=== PATIENT | female | born 1990 | race Caucasian/White ===

== ENCOUNTER 2016-07-17 09:13 | Emergency (ER) | payer OTHER ==
[2016-07-17 09:58] VITALS: BP 107/65
--- NOTE | 2016-07-17 10:49 | UC ---
Throat Pain/Nasal Jose HPI - HPI Summary HPI Summary: cough, sore throat started yesterday. No fever. Hx seizures, not on meds, has not had a seizure in a long time (years) - History of Current Complaint Chief Complaint: UCGeneralIllness Stated Complaint: SORE THROAT,COUGH Time Seen by Provider: 07/17/16 10:28 Hx Obtained From: Patient Hx Last Menstrual Period: 07/10/16 Onset/Duration: Gradual Onset, Lasting Days, Still Present Severity: Moderate Pain Intensity: 1 Pain Scale Used: 0-10 Numeric Cough: Nonproductive Associated Signs & Symptoms: Positive: Dysphagia, Hoarseness, Nasal Discharge. Negative: Fever, Rash - Epiglottits Risk Factors Epiglottis Risk Factors: Negative - Allergies/Home Medications Allergies/Adverse Reactions: Allergies Allergy/AdvReac Type Severity Reaction Status Date / Time No Known Allergies Allergy Verified 03/13/16 09:19 PMH/Surg Hx/FS Hx/Imm Hx Previously Healthy: Yes Neurological History Of: Reports: Seizures - untreated - Surgical History Surgical History: Yes Surgery Procedure, Year, and Place: BACK SX for vertebral fx 2006 - Family History Known Family History: Positive: Hypertension, Other - no FH seizures Negative: Cardiac Disease - Social History Occupation: Employed Full-time Lives: With Family Alcohol Use: None Substance Use Type: None Smoking Status (MU): Light Every Day Tobacco Smoker Type: Cigarettes Amount Used/How Often: 5 cigs per day Household Exposure Type: Cigarettes Review of Systems Constitutional: Negative Skin: Negative Eyes: Negative ENT: Sore Throat Respiratory: Negative Cardiovascular: Negative Gastrointestinal: Negative Genitourinary: Negative Motor: Negative Neurovascular: Negative Musculoskeletal: Negative Neurological: Negative Psychological: Negative All Other Systems Reviewed And Are Negative: Yes Physical Exam Triage Information Reviewed: Yes Appearance: Well-Nourished, Ill-Appearing, Pain Distress Vital Signs: Initial Vital Signs Temp 98.0 F 07/17/16 09:52 Pulse 73 07/17/16 09:52 Resp 14 07/17/16 09:52 BP 107/65 07/17/16 09:52 Pulse Ox 100 07/17/16 09:52 Vital Signs Reviewed: Yes Eyes: Positive: Conjunctiva Clear ENT: Positive: Pharyngeal erythema, TMs normal Neck: Positive: Supple, Nontender, No Lymphadenopathy Respiratory: Positive: Lungs clear, Normal breath sounds, No respiratory distress Cardiovascular: Positive: RRR, No Murmur, Pulses Normal, Brisk Capillary Refill Musculoskeletal: Positive: Strength Intact, ROM Intact Neurological: Positive: Alert, Muscle Tone Normal Psychological Exam: Normal Skin Exam: Normal Throat Pain/Nasal Course/Dx - Course Course Of Treatment: rapid A positive - Differential Dx/Diagnosis Differential Diagnosis/HQI/PQRI: Otitis Media, Pharyngitis, Sinusitis, URI Provider Diagnoses: strep pharyngitis Discharge - Discharge Plan Condition: Stable Disposition: HOME Prescriptions: Amoxicillin (*) 875 mg PO BID #20 tab Patient Education Materials: Strep Throat (ED) Forms: *Work Release Referrals: Moira Munson NP [Nurse Practitioner] -
== END 2016-07-17 11:18 | disposition home or self-care (01) ==
LOC: UCCORT 09:13
DX: J02.0 Streptococcal pharyngitis (principal); F17.210 Nicotine dependence, cigarettes, uncomplicated
CPT/HCPCS: 87651; 99212; G0463

== ENCOUNTER 2016-12-06 17:18 | Emergency (ER) | payer OTHER ==
[2016-12-06 18:11] VITALS: BP 115/75
--- NOTE | 2016-12-06 18:28 | UC ---
UC General HPI - HPI Summary HPI Summary: Patient is complaining of COBURN and stomach upset, states she through up mucus earlier today. had fever of 101 today - History of Current Complaint Chief Complaint: UCGeneralIllness Stated Complaint: UPSET STOMACH,HEADACHE Time Seen by Provider: 12/06/16 18:18 Hx Obtained From: Patient Onset/Duration: Sudden Onset, Lasting Days Timing: Constant Onset Severity: Moderate Current Severity: Moderate Associated Signs & Symptoms: Positive: Fever, Headache, Nausea - Allergy/Home Medications Allergies/Adverse Reactions: Allergies Allergy/AdvReac Type Severity Reaction Status Date / Time No Known Allergies Allergy Verified 12/06/16 18:11 Home Medications: Home Medications Qeikmfe-Illljptcwtzqj-Xthankma [Excedrin Extra Strength] 1 tab PO DAILY [History Confirmed 12/06/16] PMH/Surg Hx/FS Hx/Imm Hx Previously Healthy: Yes Other History Of: Negative For: HIV, Hepatitis B, Hepatitis C, Anticoagulant Therapy - Surgical History Surgical History: Yes Surgery Procedure, Year, and Place: BACK SX for vertebral fx 2006 - Family History Known Family History: Positive: Hypertension, Other - no FH seizures Negative: Cardiac Disease - Social History Alcohol Use: None Substance Use Type: None Smoking Status (MU): Light Every Day Tobacco Smoker Type: Cigarettes Amount Used/How Often: 5 cigs per day Household Exposure Type: Cigarettes Review of Systems Constitutional: Fever, Fatigue Skin: Negative Eyes: Negative ENT: Negative Respiratory: Negative Cardiovascular: Negative Gastrointestinal: Vomiting Genitourinary: Negative Motor: Negative Neurovascular: Negative Musculoskeletal: Negative Neurological: Negative Psychological: Negative All Other Systems Reviewed And Are Negative: Yes Physical Exam Triage Information Reviewed: Yes Appearance: Well-Nourished, Ill-Appearing, Pain Distress Vital Signs: Initial Vital Signs Temp 97.9 F 12/06/16 18:09 Pulse 94 12/06/16 18:09 Resp 22 12/06/16 18:09 BP 115/75 12/06/16 18:09 Pulse Ox 100 12/06/16 18:09 Vital Signs Reviewed: Yes Eye Exam: Normal Eyes: Positive: Conjunctiva Clear ENT: Positive: Pharyngeal erythema, TM bulging Dental Exam: Normal Neck exam: Normal Neck: Positive: Supple, Nontender, No Lymphadenopathy Respiratory Exam: Normal Respiratory: Positive: Chest non-tender, Lungs clear, Normal breath sounds Cardiovascular Exam: Normal Cardiovascular: Positive: RRR, No Murmur, Pulses Normal Abdominal Exam: Normal Abdomen Description: Positive: Nontender, No Organomegaly, Soft Bowel Sounds: Positive: Present Musculoskeletal Exam: Normal Musculoskeletal: Positive: Strength Intact, ROM Intact, No Edema Neurological Exam: Normal Neurological: Positive: Alert, Muscle Tone Normal Psychological Exam: Normal Skin Exam: Normal Course/Dx - Course Course Of Treatment: hx obtained, exam performed, meds reviewed, rapid strep obtained and is positive - Differential Dx - Multi-Symptom Provider Diagnoses: strep pharyngitis Discharge - Discharge Plan Condition: Stable Disposition: HOME Prescriptions: Amoxicillin (*) [Amoxicillin 875 MG (*)] 875 mg PO BID #20 tab Patient Education Materials: Pharyngitis (ED) Additional Instructions: 1. take the medication as prescribed. 2. Increase fluid intake and get plenty of rest.
== END 2016-12-06 18:48 | disposition home or self-care (01) ==
LOC: UCCORT 17:18
DX: J02.0 Streptococcal pharyngitis (principal); F17.210 Nicotine dependence, cigarettes, uncomplicated
CPT/HCPCS: 87651; 99212; G0463

== ENCOUNTER 2017-06-25 11:53 | Emergency (ER) | payer SELFPAY ==
[2017-06-25 13:51] VITALS: BP 104/81
[2017-06-25] MEDS ORDERED: Ibuprofen TAB* 600 MG PO ONE (14:00)
--- NOTE | 2017-06-25 14:04 | UC ---
Hand/Wrist HPI - HPI Summary HPI Summary: Yesterday while going down stairs fell backward, threw hand up to catch herself and it hit on the corner of the railing right on her 5th MCP joint. Today has pain, swelling, and inability to use the part. Works at [employer] and had to call in today for injury. - History Of Current Complaint Chief Complaint: UCUpperExtremity Stated Complaint: RIGHT HAND INJURY Time Seen by Provider: 06/25/17 13:54 Hx Obtained From: Patient Hx Last Menstrual Period: 06/04/17 ?: No Onset/Duration: Sudden Onset Severity Initially: Moderate Severity Currently: Moderate Character Of Pain: Dull, Aching, Stiffness Aggravating Factor(s): Movement Alleviating Factor(s): Rest, Ice, Elevation, OTC Meds Associated Signs And Symptoms: Positive: Swelling, Bruising Related History: Dominant Hand Right - Allergies/Home Medications Allergies/Adverse Reactions: Allergies Allergy/AdvReac Type Severity Reaction Status Date / Time No Known Allergies Allergy Verified 06/25/17 13:46 Home Medications: Home Medications NK [No Home Medications Reported] 06/25/17 [History Confirmed 06/25/17] PMH/Surg Hx/FS Hx/Imm Hx Previously Healthy: Yes Other History Of: Negative For: HIV, Hepatitis B, Hepatitis C, Anticoagulant Therapy - Surgical History Surgical History: Yes Surgery Procedure, Year, and Place: BACK SX for vertebral fx 2006 - Family History Known Family History: Positive: Hypertension, Other - no FH seizures Negative: Cardiac Disease - Social History Occupation: Employed Full-time Lives: With Family Alcohol Use: None Substance Use Type: None Smoking Status (MU): Former Smoker Type: Cigarettes Amount Used/How Often: 5 cigs per day When Did the Patient Quit Smoking/Using Tobacco: 3 months ago Household Exposure Type: Cigarettes Review of Systems Constitutional: Negative Skin: Negative Eyes: Negative ENT: Negative Respiratory: Negative Cardiovascular: Negative Gastrointestinal: Negative Genitourinary: Negative Motor: Negative Neurovascular: Negative Musculoskeletal: Arthralgia, Decreased ROM, Edema Neurological: Negative Psychological: Negative Is Patient Immunocompromised?: No All Other Systems Reviewed And Are Negative: Yes Physical Exam Triage Information Reviewed: Yes Appearance: Well-Appearing, No Pain Distress, Well-Nourished Vital Signs: Initial Vital Signs Temp 98.6 F 06/25/17 13:47 Pulse 68 06/25/17 13:47 Resp 18 06/25/17 13:47 BP 104/81 06/25/17 13:47 Vital Signs Reviewed: Yes Eye Exam: Normal Eyes: Positive: Conjunctiva Clear ENT Exam: Normal ENT: Positive: Normal ENT inspection, Hearing grossly normal, Pharynx normal, TMs normal Dental Exam: Normal Neck exam: Normal Neck: Positive: Supple, Nontender, No Lymphadenopathy Respiratory Exam: Normal Respiratory: Positive: Chest non-tender, Lungs clear, Normal breath sounds, No respiratory distress, No accessory muscle use Cardiovascular Exam: Normal Cardiovascular: Positive: RRR, No Murmur Musculoskeletal Exam: Other - bruising, pain, swelling, tenderness around R 5th MCP joint Musculoskeletal: Positive: Strength Limited @ - R flaker tender Neurological Exam: Normal Neurological: Positive: Alert Psychological Exam: Normal Skin Exam: Other - bruising R hand Diagnostics - Radiology No standard instances Xray Interpretation: No Acute Changes Radiology Interpretation Completed By: ED Physician, Radiologist Hand/Wrist Course/Dx - Differential Dx/Diagnosis Provider Diagnoses: R hand contusion Discharge - Discharge Plan Condition: Stable Disposition: HOME Patient Education Materials: Contusion in Adults (ED) Forms: *Work Release Referrals: No Primary Care Phys,NOPCP [Primary Care Provider] - Additional Instructions: You can use ibuprofen and ice as needed for pain. I expect the pain to mostly resolve within a week or so.
--- NOTE | 2017-06-25 14:22 | RAD ---
INDICATION: Pain and swelling overlying the fifth metacarpal after a fall COMPARISON: Similar radiograph dated October 13, 2013 TECHNIQUE: 4 views of the right hand were obtained. FINDINGS: The adequately corticated bones are in normal alignment. No significant focal osseous abnormality or fracture is seen. Joint spaces appear maintained. IMPRESSION: Normal right hand radiograph. If the patient's symptoms persist, follow-up imaging is recommended.
== END 2017-06-25 14:36 | disposition home or self-care (01) ==
LOC: UCCORT 11:53
DX: S60.221A Contusion of right hand, initial encounter (principal); Z87.891 Personal history of nicotine dependence; W10.9XXA Fall (on) (from) unspecified stairs and steps, initial encounter; W22.8XXA Striking against or struck by other objects, initial encounter; Y92.9 Unspecified place or not applicable
CPT/HCPCS: 99211; A9270-GY; G0463

== ENCOUNTER 2017-06-27 15:27 | Emergency (ER) | payer SELFPAY | END 2017-06-27 16:39 | disposition left against medical advice (07) | LOC: UCCORT 15:27 | DX: K08.89 Other specified disorders of teeth and supporting structures (principal); Z53.21 Procedure and treatment not carried out due to patient leaving prior to being seen by health care provider ==

== ENCOUNTER 2018-02-25 15:42 | Emergency (ER) | payer OTHER ==
[2018-02-25 16:53] VITALS: BP 100/67
[2018-02-25] MEDS ORDERED: Ondansetron ODT TAB* 4 MG PO ONE ×2 (17:40→17:54)
--- NOTE | 2018-02-25 17:45 | UC ---
Abdominal Pain Female HPI - HPI Summary HPI Summary: C/O nausea with emesis x 2 no diarrhea. C/O headache, occipital, constant throbbing. - History of Current Complaint Chief Complaint: UCGI Stated Complaint: VOMITING/HEADACHE Time Seen by Provider: 02/25/18 17:35 Hx Obtained From: Patient Hx Last Menstrual Period: 02/25/18 ?: No Onset/Duration: Gradual Onset - this morning with nausea/ vomiting and lower abdominal pain. Occipital headache, Worse Since - onset Timing: Constant Severity Initially: Mild Severity Currently: Moderate Pain Intensity: 7 Location: Discrete At: LLQ Radiates: No Character: Aching, Cramping Aggravating Factor(s): Nothing Alleviating Factor(s): Nothing Associated Signs and Symptoms: Positive: Vaginal Bleeding - with menses, Nausea , Vomiting. Negative: Fever, Urinary Symptoms, Diarrhea Allergies/Adverse Reactions: Allergies Allergy/AdvReac Type Severity Reaction Status Date / Time No Known Allergies Allergy Verified 02/25/18 16:53 Home Medications: Home Medications Acetaminophen [Acetaminophen Extra Strength] 500 mg PO ONCE PRN 02/25/18 [ History Confirmed 02/25/18] PMH/Surg Hx/FS Hx/Imm Hx Neurological History: Migraine Other History Of: Negative For: HIV, Hepatitis B, Hepatitis C, Anticoagulant Therapy - Surgical History Surgical History: Yes Surgery Procedure, Year, and Place: BACK SX for vertebral fx 2006 - Family History Known Family History: Positive: Hypertension, Other - no FH seizures Negative: Cardiac Disease, Diabetes - Social History Occupation: Employed Full-time Lives: Alone - with boyfriend Alcohol Use: Rare Substance Use Type: None Smoking Status (MU): Former Smoker Type: Cigarettes Amount Used/How Often: 5 cigs per day When Did the Patient Quit Smoking/Using Tobacco: 2017 Household Exposure Type: Cigarettes Review of Systems Gastrointestinal: Vomiting, Nausea Neurological: Headache Is Patient Immunocompromised?: No All Other Systems Reviewed And Are Negative: Yes Physical Exam Triage Information Reviewed: Yes Appearance: No Pain Distress, Ill-Appearing, Pain Distress Vital Signs: Initial Vital Signs Temp 98.8 F 02/25/18 16:46 Pulse 91 02/25/18 16:46 Resp 16 02/25/18 16:46 BP 100/67 02/25/18 16:46 Pulse Ox 98 02/25/18 16:46 Vital Signs Reviewed: Yes Eyes: Positive: Conjunctiva Clear ENT: Positive: Pharynx normal, Nasal congestion, TMs normal Neck exam: Normal Respiratory Exam: Normal Cardiovascular Exam: Normal Abdomen Description: Negative: Nontender - Mild epigastric and LLQ > RLQ tenderness, CVA Tenderness (R), CVA Tenderness (L), McBurney's Point Tenderness , Peritoneal Signs Bowel Sounds: Positive: Present Musculoskeletal Exam: Normal Neurological Exam: Normal Psychological Exam: Normal Skin Exam: Normal Abd Pain Female Course/Dx - Differential Dx/Diagnosis Differential Diagnosis: Appendicitis, Irritable Bowel Syndrome, Pancreatitis Provider Diagnoses: Migraine headache. Gastroentitis Discharge - Sign-Out/Discharge Documenting (check all that apply): Patient Departure All imaging exams completed and their final reports reviewed: No Studies - Discharge Plan Condition: Stable Disposition: HOME Prescriptions: Ondansetron ODT TAB* [Zofran 4 MG Odt TAB*] 4 mg PO Q6H PRN #10 tab.odt PRN Reason: Nausea/Vomiting Patient Education Materials: Migraine Headache (ED), Gastroenteritis (DC), Ondansetron (By mouth) Referrals: No Primary Care Phys,NOPCP [Primary Care Provider] - Additional Instructions: If you get worsening abdominal pain, go to the ER. - Billing Disposition and Condition Condition: STABLE Disposition: Home
== END 2018-02-25 18:05 | disposition home or self-care (01) ==
LOC: UCCORT 15:42
DX: G43.909 Migraine, unspecified, not intractable, without status migrainosus (principal); K52.9 Noninfective gastroenteritis and colitis, unspecified; Z87.891 Personal history of nicotine dependence
CPT/HCPCS: 99212; A9270-GY; G0463

== ENCOUNTER 2018-08-06 17:06 | Emergency (ER) | payer SELFPAY ==
[2018-08-06 18:04] VITALS: BP 115/64
--- NOTE | 2018-08-06 18:05 | UC ---
Lower Extremity/Ankle HPI - HPI Summary HPI Summary: 27 yo female presents with RIGHT foot pain. She tells me that a few days ago she had a seizure and injured her right foot. She went to the ER for this and tells me that her workup was negative and there was no sign of fracture in her foot. They told her she had a sprain and sent her home. She is here today requesting a note for work as she does not feel ready to return. Pain worse with weight bearing. Has been taking ibuprofen with little relief. Denies numbness, tingling. - History of Current Complaint Chief Complaint: UCLowerExtremity Stated Complaint: RIGHT FOOT COMPLAINT Time Seen by Provider: 08/06/18 18:04 Hx Obtained From: Patient Hx Last Menstrual Period: 08/04/18 Onset/Duration: Sudden Onset Severity Initially: Moderate Severity Currently: Moderate Pain Intensity: 7 Pain Scale Used: 0-10 Numeric Aggravating Factor(s): Standing, Ambulation Able to Bear Weight: Yes - Allergies/Home Medications Allergies/Adverse Reactions: Allergies Allergy/AdvReac Type Severity Reaction Status Date / Time No Known Allergies Allergy Verified 08/06/18 18:02 Home Medications: Home Medications NK [No Home Medications Reported] 08/06/18 [History Confirmed 08/06/18] PMH/Surg Hx/FS Hx/Imm Hx - Additional Past Medical History Additional PMH: Epilepsy Other History Of: Negative For: HIV, Hepatitis B, Hepatitis C, Anticoagulant Therapy - Surgical History Surgical History: Yes Surgery Procedure, Year, and Place: BACK SX for vertebral fx 2006 - Family History Known Family History: Positive: Hypertension, Other - no FH seizures Negative: Cardiac Disease, Diabetes - Social History Occupation: Employed Full-time Lives: With Family Alcohol Use: Occasionally Substance Use Type: Marijuana Substance Use Comment - Amount & Last Used: occasional Smoking Status (MU): Former Smoker Type: Cigarettes Amount Used/How Often: 5 cigs per day When Did the Patient Quit Smoking/Using Tobacco: 2017 Household Exposure Type: Cigarettes Review of Systems All Other Systems Reviewed And Are Negative: Yes Constitutional: Positive: Negative Skin: Positive: Negative Respiratory: Positive: Negative Cardiovascular: Positive: Negative Neurovascular: Positive: Negative Musculoskeletal: Positive: Other: - Right foot pain Neurological: Positive: Negative Psychological: Positive: Negative Physical Exam - Summary Physical Exam Summary: GENERAL: NAD. WDWN. No pain distress. SKIN: No rashes, sores, lesions, or open wounds. CHEST: No accessory muscle use. Breathing comfortably and in no distress. CV: Pulses intact PT and DP. Cap refill <2seconds MSK: RIGHT FOOT: Mild TTP at 5th MT. FROM at ankle without pain. Strength 5/5. No edema or obvious bony deformities. NEURO: Alert. Sensations intact and symmetric B/L LEs PSYCH: Age appropriate behavior. Triage Information Reviewed: Yes Vital Signs: Initial Vital Signs Temp 97.8 F 08/06/18 18:00 Pulse 75 08/06/18 18:00 Resp 19 08/06/18 18:00 BP 115/64 08/06/18 18:00 Pulse Ox 98 08/06/18 18:00 Vital Signs Reviewed: Yes Lower Extremity Course/Dx - Course Course Of Treatment: Pt placed in CAM boot and advised to f/u with Orthopedics as soon as possible. - Differential Dx/Diagnosis Provider Diagnosis: Foot sprain Discharge - Sign-Out/Discharge Documenting (check all that apply): Patient Departure All imaging exams completed and their final reports reviewed: No Studies - Discharge Plan Condition: Stable Disposition: HOME Patient Education Materials: Ankle Sprain (ED) Forms: *Work Release Referrals: No Primary Care Phys,NOPCP [Primary Care Provider] - Clinton Brooks MD [Medical Doctor] - As Soon As Possible Additional Instructions: If you develop a fever, shortness of breath, chest pain, new or worsening symptoms - please call your PCP or go to the ED. - Billing Disposition and Condition Condition: STABLE Disposition: Home
== END 2018-08-06 18:18 | disposition home or self-care (01) ==
LOC: UCCORT 17:06
DX: S93.601A Unspecified sprain of right foot, initial encounter (principal); Z87.891 Personal history of nicotine dependence; X58.XXXA Exposure to other specified factors, initial encounter; Y92.9 Unspecified place or not applicable
CPT/HCPCS: 99212; G0463

== ENCOUNTER 2018-09-11 04:37 | Emergency (ER) | payer MEDICAID ==
[2018-09-11] MEDS ORDERED: Topiramate TAB(*) 25 MG PO ONE (05:04)
[2018-09-11] MEDS ORDERED: Metoclopramide IV* 5 MG/ML 2 ML VIAL IV SLOW PU ONE (05:04)
--- NOTE | 2018-09-11 05:05 | ED ---
Neurological HPI - HPI Summary HPI Summary: A 28 y/o female brought in by [facility] ambulance presents to [facility] with a chief complaint of a possible seizure at 04:00 this morning. Per EMS, the patient was at work when her coworker noticed that the patient had a blank stare. The coworker knew that the patient had a Hx of seizures and called 911. Upon EMS arrival on the scene, the patient on the floor but was alert and verbal. The patient however, does not recall EMS picking her up. She denies any urinary incontinence or biting her tongue. At triage the patient rated her pain as a 0/ 10 in severity. It is unknown how the patient got to the floor and how long the seizure lasted. 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 She had her first seizure at 16 y/o and reports that she took Topamax. However, in the past 5 years she has not been taking her seizure medication due to insurance problems, but she does report she recently got new insurance. She reports that she has seizures about once every two months. Vital signs while in room HR: 98 bpm, O2 Sat: 94, BP: 105/83 - History of Current Complaint Chief Complaint: EDSeizure Stated Complaint: SEIZURE PER EMS Time Seen by Provider: 09/11/18 04:40 Hx Obtained From: Patient, EMS Hx Last Menstrual Period: 08/04/18 Onset/Duration: Sudden Onset, Started minutes ago, Resolved Timing: Intermittent Episodes Lasting: - 1 episode unknown duration Onset Severity: Mild Current Severity: Mild Seizure Severity: Mild Number of Seizures: 1 - reported, witnessed by coworker Neurological Deficit Location: Generalized Pain Intensity: 0 Pain Scale Used: 0-10 Numeric Character: Unable To Describe Episode Lasting: Unknown Aggravating: Nothing Alleviating: Nothing Associated Signs and Symptoms: Negative: Incontinent Bladder/Bowel, Fever - Allergy/Home Medications Allergies/Adverse Reactions: Allergies Allergy/AdvReac Type Severity Reaction Status Date / Time No Known Allergies Allergy Verified 08/06/18 18:02 PMH/Surg Hx/FS Hx/Imm Hx Endocrine/Hematology History: Denies: Hx Anticoagulant Therapy, Hx Diabetes, Hx Thyroid Disease Cardiovascular History: Denies: Hx Congestive Heart Failure, Hx Deep Vein Thrombosis, Hx Hypertension , Hx Myocardial Infarction, Hx Pacemaker/ICD Respiratory History: Denies: Hx Asthma, Hx Chronic Obstructive Pulmonary Disease (COPD), Hx Lung Cancer, Hx Pneumonia, Hx Pulmonary Embolism GI History: Denies: Hx Gall Bladder Disease, Hx Gastrointestinal Bleed, Hx Ulcer, Hx Urosepsis History: Denies: Hx Kidney Stones, Hx Renal Disease Neurological History: Reports: Hx Seizures - untreated Denies: Hx Dementia, Hx Migraine, Hx Transient Ischemic Attacks (TIA) Psychiatric History: Denies: Hx Anxiety, Hx Depression, Hx Schizophrenia, Hx Bipolar Disorder - Surgical History Surgery Procedure, Year, and Place: BACK SX for vertebral fx 2006 Infectious Disease History: No Infectious Disease History: Denies: Traveled Outside the [place] in Last 30 Days - Family History Known Family History: Positive: Hypertension, Other - no FH seizures Negative: Cardiac Disease, Diabetes - Social History Alcohol Use: Occasionally Substance Use Type: Reports: Marijuana Substance Use Comment - Amount & Last Used: occasional Smoking Status (MU): Former Smoker Type: Cigarettes Amount Used/How Often: 5 cigs per day Review of Systems Negative: Fever Negative: incontinence Neurological: Negative - biting tongue during possible seizure, Other - Positive : possible seizure All Other Systems Reviewed And Are Negative: Yes Physical Exam - Summary Physical Exam Summary: VITAL SIGNS: Reviewed. GENERAL: Patient is a well-developed and nourished FEMALE who is lying comfortable in the stretcher. Patient is not in any acute respiratory distress. HEAD AND FACE: No signs of trauma. No ecchymosis, hematomas or skull depressions. No sinus tenderness. EYES: PERRLA, EOMI x 2, No injected conjunctiva, no nystagmus. EARS: Hearing grossly intact. Ear canals and tympanic membranes are within normal limits. MOUTH: Oropharynx within normal limits. NECK: Supple, trachea is midline, no adenopathy, no JVD, no carotid bruit, no c- spine tenderness, neck with full ROM. CHEST: Symmetric, no tenderness at palpation LUNGS: Clear to auscultation bilaterally. No wheezing or crackles. CVS: Regular rate and rhythm, S1 and S2 present, no murmurs or gallops appreciated. ABDOMEN: Soft, non-tender. No signs of distention. No rebound no guarding, and no masses palpated. Bowel sounds are normal. EXTREMITIES: FROM in all major joints, no edema, no cyanosis or clubbing. NEURO: Alert and oriented x 3. No acute neurological deficits. Speech is normal and follows commands. SKIN: Dry and warm Triage Information Reviewed: Yes Vital Signs On Initial Exam: Initial Vitals Temp Pulse Resp BP Pulse Ox 98.8 F 108 16 121/82 97 09/11/18 04:39 09/11/18 04:39 09/11/18 04:39 09/11/18 04:39 09/11/18 04:39 Vital Signs Reviewed: Yes Diagnostics - Vital Signs Vital Signs Temp Pulse Resp BP Pulse Ox 09/11/18 04:39 98.8 F 108 16 121/82 97 - Laboratory Result Diagrams: 09/11/18 05:18 09/11/18 05:18 Lab Statement: Any lab studies that have been ordered have been reviewed, and results considered in the medical decision making process. Re-Evaluation - Re-Evaluation First Eval Re-Evaluation Time: 06:04 Change: Improved Comment: Informed patient and family about discharge. Course/Dx - Course Course Of Treatment: A 28 y/o female brought in by [facility] ambulance presents to [facility] with a chief complaint of a possible seizure at 04:00 this morning. Per EMS, the patient was at work when her coworker noticed that the patient had a blank stare. The coworker knew that the patient had a Hx of seizures and called 911. Upon EMS arrival on the scene, the patient on the floor but was alert and verbal. The patient however, does not recall EMS picking her up. She denies any urinary incontinence or biting her tongue. At triage the patient rated her pain as a 0/10 in severity. It is unknown how the patient got to the floor and how long the seizure lasted. 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 She had her first seizure at 16 y/o and reports that she took Topamax. However, in the past 5 years she has not been taking her seizure medication due to insurance problems, but she does report she recently got new insurance. She reports that she has seizures about once every two months. The physical exam was unremarkable. Bloodwork, chemistries and urined obtained. Urine proteins 2+ and hyaline casts present. In the ED course the patietn was given Reglan IV, Zofran IV and Topamax PO. There was no seizure while the patient was in the emergency room. The patient will be discharged and instructed to follow up with Dr. Hewitt, neurologist. She was instructed not to drive until it was cleared by a neurologist. The patient is agreeable with this plan. - Diagnoses Provider Diagnoses: Seizure Discharge - Sign-Out/Discharge Documenting (check all that apply): Patient Departure - DC Patient Received Moderate/Deep Sedation with Procedure: No - Discharge Plan Condition: Stable Disposition: HOME Prescriptions: Topiramate [Topamax] 50 mg PO BID #60 tablet Patient Education Materials: Recurrent Seizures in Adults (ED) Referrals: Rosa Hewitt MD [Medical Doctor] - (1-2 days) Additional Instructions: Follow up with Dr. Hewitt, neurology. No driving until it is cleared by the neurologist. RETURN TO THE EMERGENCY DEPARTMENT FOR CHANGING OR WORSENING SYMPTOMS. FOLLOW UP WITH PCP IN 1-2 DAYS. - Billing Disposition and Condition Condition: STABLE Disposition: Home - Attestation Statements Document Initiated by Brendan: Yes Documenting Scribe: Eugenio Cadet Provider For Whom Brendan is Documenting (Include Credential): Aspen Cummings MD Scribe Attestation: IEugenio, scribed for Aspen Cummings MD on 09/11/18 at 0624. Scribe Documentation Reviewed: Yes Provider Attestation: The documentation as recorded by the Eugenio tinajero accurately reflects the service I personally performed and the decisions made by , Aspen Cummings MD Status of Scribe Document: Viewed
[2018-09-11 05:27] LABS: ABS Basophils 0.1 10^3/ul (0-0.2); ABS Eosinophils 0.3 10^3/ul (0-0.6); ABS Lymphocytes 2.2 10^3/ul (1.0-4.8); ABS Neutrophils 7.9 10^3/ul (1.5-7.7); ABS Nucleated RBC 0 10^3/ul; Eosinophil % 2.8 %; Hematocrit 44 % (33-41); Mean Corpuscular HGB Conc 34 g/dL (31-36); Mean Corpuscular Hemoglobin 31 pg (27-31); Mean Corpuscular Volume 90 fL (80-97); Mean Platelet Volume 7.7 fL (7.4-10.4); Nucleated Red Blood Cells % 0.1; Platelet Count 312 10^3/uL (150-450); Red Cell Distribution Width 13 % (10.5-15); White Blood Count 11.5 10^3/uL (3.5-10.8)
[2018-09-11] MEDS ORDERED: Ondansetron INJ* 2 MG/ML VIAL IV ONE (05:33)
[2018-09-11] MEDS ORDERED: NS 0.9% 1000 ML** 1,000 ML IV ONE (05:33)
[2018-09-11 05:41] LABS: Urine Appearance Cloudy; Urine Bacteria Absent (Absent); Urine Bilirubin Negative (Negative); Urine Blood Negative (Negative); Urine Color Yellow; Urine Glucose Negative (Negative); Urine Ketones Negative (Negative); Urine Nitrite Negative (Negative); Urine Protein 2+(100 mg/dL) (Negative); Urine Red Blood Cell Trace(0-2/hpf) (Absent); Urine Specific Gravity 1.019 (1.010-1.030); Urine Squamous Epithelial Cell Present (Absent); Urine Urobilinogen Negative (Negative); Urine White Blood Cell Trace(0-5/hpf) (Absent)
[2018-09-11 05:46] LABS: Albumin 4.4 g/dL (3.2-5.2); Albumin/Globulin Ratio 1.4 (1-3); BUN/Creatinine Ratio 13.5 (8-20); Calcium 9.4 mg/dL (8.6-10.3); EGFR African American 113.1 (>60); EGFR Non-African American 93.5 (>60); Globulin 3.1 g/dL (2-4); Magnesium 1.8 mg/dL (1.9-2.7); Total Bilirubin 0.3 mg/dL (0.2-1.0); Total Protein 7.5 g/dL (6.4-8.9)
[2018-09-11 05:52] LABS: HCG Pregnancy 0.82 mIU/mL
[2018-09-11 06:10] VITALS: BP 127/72
== END 2018-09-11 06:09 | disposition home or self-care (01) ==
LOC: ED 04:37
DX: G40.909 Epilepsy, unspecified, not intractable, without status epilepticus (principal); Z87.891 Personal history of nicotine dependence
CPT/HCPCS: 36415; 80053; 81003; 81015; 82550; 83735; 84702; 85025; 87086; 96374; 96375; 99282; A9270-GY; J2765